=== PATIENT | male | born 1945 | race Caucasian/White ===

== ENCOUNTER 2019-08-05 09:25 | Day surgery (SDC) | payer BC ==
[~2019-08-05 09:25] MED LIST: CEFAZOLIN 2 Gram 2 GM/50 ML BAG IVPB ONE
[2019-08-05] MEDS ORDERED: LIDOCAINE 2% MDV (20MG/ML) 20ML VIAL IV ONE (09:26)
[2019-08-05] MEDS ORDERED: EPHEDRINE SULFATE 50 MG/ML ML IV ONE (09:26)
[2019-08-05] MEDS ORDERED: ONDANSETRON HCL IV 4 MG/2 ML VIAL IVP ONE (09:26)
[2019-08-05] MEDS ORDERED: PROPOFOL 10 MG/ML VIAL IV ONE (09:26)
[2019-08-05] MEDS ORDERED: FENTANYL PF 100MCG/2ML VIAL IV ONE (09:26)
[2019-08-05] MEDS ORDERED: DESFLURANE 240 ML BTL INH ONE (09:26)
[2019-08-05 09:45] LABS: ABSOLUTE NEUTROPHIL COUNT 3.52; BASO % 0.3 % (0-6); EOS % 4.6 % (0-6); GRAN % 54.3 % (47-80); HEMATOCRIT 47.7 % (42.0-52.0); HEMOGLOBIN 15.5 gm/dl (14.0-18.0); LYMPH % 30.8 % (16-45); MEAN CELL VOLUME 96.8 fl (81-97); MEAN CORPUSCULAR HEMOGLOBIN 31.4 pg (27-33); MEAN CORPUSCULAR HGB CONC 32.5 g/dl (32-36); MEAN PLATELET VOLUME 10.8 fl (7.4-10.4); PLATELET COUNT 198 K/uL (130-400); RED BLOOD COUNT 4.93 M/uL (4.40-5.70); RED CELL DISTRIBUTION WIDTH 15.6 % (11.5-14.5); WHITE BLOOD COUNT W/O DIFF 6.5 K/uL (4.2-12.2)
[2019-08-05 10:01] LABS: INR 1.1; PROTHROMBIN TIME (PATIENT) 11.6 SECONDS (9.5-12.1)
[2019-08-05] MEDS ORDERED: 0.9 % SODIUM CHLORIDE 1000ML 1,000 ML IV ONE (10:05)
== END 2019-08-05 15:20 | disposition home or self-care (01) ==
LOC: SUR 09:25
PROVIDERS: ATTEND Urology
DX: D41.4 Neoplasm of uncertain behavior of bladder (principal); R31.29 Other microscopic hematuria; Z79.01 Long term (current) use of anticoagulants; I10 Essential (primary) hypertension; E11.9 Type 2 diabetes mellitus without complications; E78.00 Pure hypercholesterolemia, unspecified; Z79.4 Long term (current) use of insulin; I48.91 Unspecified atrial fibrillation; Z95.1 Presence of aortocoronary bypass graft; F03.90 Unspecified dementia, unspecified severity, without behavioral disturbance, psychotic disturbance, mood disturbance, and anxiety; N18.3 Chronic kidney disease, stage 3 (moderate)
CPT/HCPCS: 52234; 00912; 85025; 85610; 36416; 82948; J2405; J3010; J0690; J7030

== ENCOUNTER 2019-08-06 17:18 | Emergency (ER) | payer BC ==
--- NOTE | 2019-08-06 18:13 | Emergency Department Record ---
History of Present Illness - General Chief complaint: Lower Extremity Pain Stated complaint: SWELLING IN LEG Time Seen by Provider: 08/06/19 17:37 Source: Patient, Family Mode of Arrival: Ambulatory Limitations: No limitations - History of Present Illness Initial comments: The patient is here due to waking up today with L leg swelling and pain mainly to the thigh area. He denies any trauma, CP, SOB, dyspnea. The patient has a hx of recurrent DVT's and normally takes coumadin and has been off it a week due to needing bladder surgery yesterday for a bladder tumor. The tumor was removed here at [facility] and the patient has been urinating normally since. He is supposed to restart his Coumadin tomorrow. MD Complaint: Extremity pain, Extremity swelling Onset/Timin -: Days(s) Location: Left, Lower Leg, Thigh History of Same: Yes Improves with: Nothing Worsens with: Nothing Associated Symptoms: Denies other symptoms - Related Data Home Medications Medication Instructions Recorded Confirmed Last Taken Aspirin [Aspir-Low] 81 mg PO DAILY 08/06/19 08/06/19 Unknown Cholecalciferol (Vitamin D3) 2,000 unit PO DAILY 08/06/19 08/06/19 Unknown [Vitamin D3] Fenofibrate 40 mg PO DAILY 08/06/19 08/06/19 Unknown Furosemide [Lasix] 20 mg PO DAILY 08/06/19 08/06/19 Unknown Glimepiride [Amaryl] 2 mg PO DAILY 08/06/19 08/06/19 Unknown Insulin Regular, Human [Humulin R] 45 unit SQ ASDIR 08/06/19 08/06/19 Unknown Isosorbide Mononitrate [Imdur] 60 mg PO BID 08/06/19 08/06/19 Unknown Metoprolol Tartrate [Lopressor] 100 mg PO BID 08/06/19 08/06/19 Unknown Pioglitazone HCl [Actos] 15 mg PO QHS 08/06/19 08/06/19 Unknown Pravastatin Sodium [Pravachol] 20 mg PO QHS 08/06/19 08/06/19 Unknown Warfarin Sodium [Coumadin] 1 mg PO DAILY 08/06/19 08/06/19 Unknown Allergies Allergy/AdvReac Type Severity Reaction Status Date / Time allopurinol Allergy HIVES Verified 08/01/19 09:53 meperidine [From Demerol] Allergy HIVES Verified 08/01/19 09:53 Travel Screening - Travel/Exposure Within Last 30 Days Have you traveled within the last 30 days?: No Review of Systems Constitutional: Denies: Chills, Fever Eyes: Denies: Eye discharge ENT: Denies: Congestion Respiratory: Denies: Cough, Dyspnea Cardiovascular: Denies: Arrhythmia Endocrine: Reports: Fatigue Gastrointestinal: Denies: Nausea Genitourinary: Reports: Dysuria Musculoskeletal: Denies: Arthralgia Past Medical History - SOCIAL HISTORY Smoking Status: Former smoker Alcohol Use: None Drug Use: None - RESPIRATORY Hx Respiratory Disorders: Yes Hx Pulmonary Embolism: Yes (2010) Hx Sleep Apnea: Yes Hx of CPAP: Yes - CARDIOVASCULAR Hx Cardio Disorders: Yes Hx Abnormal EKG: Yes Hx Cardiac Cath: Yes Hx Deep Vein Thrombosis: Yes (2010) Hx Heart Attack: Yes (1987 -1992 X'S 3) Hx Hypertension: Yes (ON MEDS WITH GOOD CONTROL) Hx Irregular Heartbeat: Yes (A FIB 2010 NO PROBLEMS SINCE) Hx Vascular Disease: Yes (HAS HAD CAROTIDS CLEANED OUT) Hx Coronary Artery Disease: Yes Hx Coronary Artery Bypass Graft: Yes (TRIPLE 1987) Hx Coronary Stent: Yes Hx Percutaneous Transluminal Coronary Angioplasty (PTCA): (X'S 3 1996) - NEURO Hx Neuro Disorders: Yes Hx Dementia: Yes (GOING FOR DEMENTIA TESTING 08-11-19 FORGETFUL) Hx TIA: Yes (X'S 3 LAST 2010) Comment:: HARD OF HEARING - GI Hx GI Disorders: No - Hx Genitourinary Disorders: Yes Hx Bladder Problem: Yes (HEMATURIA) Hx Renal Disease: Yes (STAGE 3 KIDNEY FAILURE) - ENDOCRINE Hx Endocrine Disorders: Yes Hx Diabetes: Yes (DX'D 1999) Comment:: BLOOD SUGARS USUALLY BELOW 150 - MUSCULOSKELETAL Hx Musculoskeletal Disorders: Yes Hx Arthritis: Yes - PSYCH Hx Psych Problems: No - HEMATOLOGY/ONCOLOGY Hx Hematology/Oncology Disorders: Yes Hx Bruising: Yes (EASILY) Hx Clotting Problems: Yes (ON COUMADIN) Comment:: K RUNS HIGH NORMAL 5.2 HAS HAD ISSUES FOR YEARS Family Medical History Any Significant Family History?: Yes Hx Cancer: Mother, Brother/Sister Hx Dementia: Brother/Sister Hx Depression: Brother/Sister Hx Diabetes: Mother, Brother/Sister Hx Heart Disease: Father, Brother/Sister Hx HTN: Mother, Brother/Sister Physical Exam - General General Appearance: Alert, Cooperative, No acute distress - Head Head exam: Atraumatic, Normocephalic - Eye Eye exam: Normal appearance, PERRL - Neck Neck exam: Normal inspection, Full ROM. negative: Tenderness - Respiratory Respiratory exam: Normal lung sounds bilaterally. negative: Respiratory distress - Cardiovascular Cardiovascular Exam: Regular rate, Normal rhythm, Normal heart sounds - GI/Abdominal GI/Abdominal exam: Soft, Normal bowel sounds. negative: Tenderness - Extremities Extremities exam: Pedal edema (Trace L leg. ), Tenderness (There is diffuse swelling and tenderness to the L thigh area.). negative: Normal inspection - Neurological Neurological exam: Alert. negative: Motor sensory deficit Course Vital Signs 08/06/19 17:33 Temperature 97.8 F Pulse Rate 60 Respiratory 20 Rate Blood Pressure 157/77 Pulse Ox 97 - Reevaluation(s) Reevaluation #1: The patient is resting comfortably with no complaints. He denies any CP or SOB and is very hemodynamically stable. I did explain to the patient and family that we do not have any doppler US here for 2 days and since that is what he needs he will need to be transferred. He chose to go to [facility] so I did discuss the case with Dr. Be in the ER and he did accept the patient in an ER to ER transfer. 08/06/19 18:57 Medical Decision Making - Data Complexity MDM Data: Labs Ordered and/or Reviewed - Lab Data Result diagrams: 08/06/19 18:20 08/06/19 18:20 Disposition Disposition: Transfer Clinical Impression: Left leg swelling Disposition: Acute Care Hospital Transfer Transfer To: [facility] ER Reason For Transfer: Doppler Accepting Physician: Haile Time Discussed w/Accepting Physician: 18:59 Condition: (2) Stable Forms: Patient Portal Access Time of Disposition: 18:59 Quality - Quality Measures Quality Measures: N/A - Blood Pressure Screening View Details: Yes Does Patient Have Any of the Following: Active Dx of HTN Blood Pressure Classification: Hypertensive Reading Systolic Measurement: 157 Diastolic Measurement: 77 Screening for High Blood Pressure: Patient Exclusion, Hx of HTN [G9744]
[2019-08-06 18:31] LABS: BASO % 0.3 % (0-6); EOS % 2.4 % (0-6); GRAN % 54.2 % (47-80); HEMATOCRIT 44.3 % (42.0-52.0); HEMOGLOBIN 14.1 gm/dl (14.0-18.0); MEAN CELL VOLUME 96.5 fl (81-97); MEAN CORPUSCULAR HEMOGLOBIN 30.7 pg (27-33); MEAN CORPUSCULAR HGB CONC 31.8 g/dl (32-36); MEAN PLATELET VOLUME 10.1 fl (7.4-10.4); MONO % 11.1 % (0-9); PLATELET COUNT 162 K/uL (130-400); RED BLOOD COUNT 4.59 M/uL (4.40-5.70); RED CELL DISTRIBUTION WIDTH 15.7 % (11.5-14.5); WHITE BLOOD COUNT W/O DIFF 6.3 K/uL (4.2-12.2)
[2019-08-06 18:42] LABS: INR 1.2; PARTIAL THROMBOPLASTIN TIME 24.6 SECONDS (24.5-39.1); PROTHROMBIN TIME (PATIENT) 12.2 SECONDS (9.5-12.1)
[2019-08-06 18:47] LABS: BILIRUBIN,TOTAL 0.7 mg/dL (0.2-1.0); CREATININE 2.1 mg/dL (0.7-1.2); TOTAL PROTEIN 7.1 g/dL (6.6-8.7)
[2019-08-06 18:52] LABS: ALB/GLOB RATIO 1.6 (1.1-1.8); ALBUMIN 4.4 g/dL (4.0-5.0)
== END 2019-08-06 19:16 | disposition short-term general hospital (02) ==
LOC: ER 17:18
DX: R22.42 Localized swelling, mass and lump, left lower limb (principal); Z86.718 Personal history of other venous thrombosis and embolism; Z87.891 Personal history of nicotine dependence; I25.2 Old myocardial infarction; I10 Essential (primary) hypertension; E11.9 Type 2 diabetes mellitus without complications; Z79.4 Long term (current) use of insulin
CPT/HCPCS: 80053; 85025; 85610; 85730; 99285